=== PATIENT | male | born 2000 | race Caucasian/White ===

== ENCOUNTER → 2019-11-09 17:54 | Outpatient (CLI) | payer BC, SELFPAY ==
--- NOTE | 2019-11-09 18:15 | XR_ITS ---
PROCEDURE: XR SHOULDER RT MIN 2V CLINICAL INDICATION: PAIN COMPARISON: No exams were available for comparison FINDINGS: No fracture, dislocation, lytic change, or blastic change evident. No significant degenerative change IMPRESSION: No acute findings. Dictated by: Burton Navarro MD 11/09/2019 19:24 Electronically signed by Burton Navarro MD in [place] 11/09/2019 19:24
== END ==
PROVIDERS: Visit Provider Nurse Practitioner
DX: M25.511 Pain in right shoulder (principal)
CPT/HCPCS: 73030

== ENCOUNTER → 2019-11-18 09:26 | Outpatient (CLI) | payer BC, SELFPAY ==
--- NOTE | 2019-11-18 09:29 | MR_ITS ---
PROCEDURE: MR SHOULDER RT WO/W CON CLINICAL INDICATION: PAIN IN UNSPECIFIED SHOULDER Right shoulder pain unable to raise arm, limited range of motion, injury with pain COMPARISON: 11/09/2019 TECHNIQUE: Routine multiplanar multi echo sequences are performed without and with gadolinium enhancement. FINDINGS: There is some thickening of the supraspinatus tendon distally with slight increased T2 signal suggesting tendinosis/tendinopathy. A rotator cuff tear is not identified. The supraspinatus, infraspinatus, subscapularis, and teres minor tendons appear without evidence of tear. The post enhanced indirect axial arthrographic images show a defect within the anterior glenoid labrum inferiorly consistent with a reverse Bankart lesion. Increased T2 signal involves the humeral head superiorly and posteriorly with a small indentation noted along the posterior aspect of the humeral head consistent with a Hill-Sachs deformity. The bicipital tendon is in place. There is a small shoulder joint effusion. The acromioclavicular joint has an unremarkable appearance. IMPRESSION: 1. 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 No obvious bony involvement with an associated Hill-Sachs compression deformity of the posterior humeral head superiorly. 2. No evidence of rotator cuff tear. There is mild tendinopathy/tendinosis of the supraspinatus tendon with a small shoulder joint effusion Dictated by: Burton Navarro MD 11/19/2019 11:11 Electronically signed by Burton Navarro MD in [place] 11/19/2019 11:11
== END ==
PROVIDERS: Visit Provider Nurse Practitioner
DX: M25.511 Pain in right shoulder (principal)
CPT/HCPCS: 73223; A9576

== ENCOUNTER 2021-01-31 17:00 | Outpatient (RCR) | payer BC, SELFPAY | END 2021-02-13 16:30 | disposition home or self-care (01) | LOC: PT.CARL 17:00 | PROVIDERS: Visit Provider Orthopaedic Surgery | DX: S42.301A Unspecified fracture of shaft of humerus, right arm, initial encounter for closed fracture (principal) | CPT/HCPCS: 97010; 97014; 97110; 97140; 97163; G0283 ==

== ENCOUNTER 2025-01-04 11:35 | Outpatient (CLI) | payer BC, SELFPAY | END 2025-01-04 23:59 | disposition home or self-care (01) | LOC: LAB.DROPOF 01-06 15:58 | PROVIDERS: PCP Nurse Practitioner Family; Visit Provider Nurse Practitioner Family | DX: J02.9 Acute pharyngitis, unspecified (principal) | CPT/HCPCS: 87070; 87077 ==